=== PATIENT | female | born 2000 | race Caucasian/White ===

== ENCOUNTER 2019-12-06 15:10 | Emergency (ER) | payer MEDICAID ==
[~2019-12-06] VITALS: Ht 172.7 cm; Wt 70.8 kg
[2019-12-06 16:18] VITALS: BP 112/62
--- NOTE | 2019-12-06 16:28 | NUR ---
sudden onset of right thigh pain x last night denies injury--pain upon certain positions or ambulating
[2019-12-06] MEDS ORDERED: ACETAMINOPHEN EXTRA STRENGTH 500 MG TAB PO ONE (17:30)
[2019-12-06 17:47] VITALS: BP 112/62
--- NOTE | 2019-12-06 17:48 | NUR ---
Patient discharged with v/s stable. Written and verbal after care instructions given and explained. Patient alert, oriented and verbalized understanding of instructions. Ambulatory with steady gait. All questions addressed prior to discharge. ID band removed. Patient advised to follow up with PMD. Rx of extra strenght tylenol given. Patient educated on indication of medication including possible reaction and side effects. Opportunity to ask questions provided and answered.
== END 2019-12-06 17:48 | disposition home or self-care (01) ==
LOC: MED 15:10
DX: M76.32 Iliotibial band syndrome, left leg (principal)
CPT/HCPCS: 73502; 81002; 81025; 99283